=== PATIENT | female | born 1940 | race Hispanic/Latino ===

== ENCOUNTER 2024-05-16 07:50 | Outpatient (CLI) | payer MEDICARE | END 2024-05-16 07:51 | disposition home or self-care (01) | LOC: CSHMAMMO 07:50 | PROVIDERS: ATTEND Student in an Organized Health Care Education/Training Program | DX: Z78.0 Asymptomatic menopausal state (principal); M81.0 Age-related osteoporosis without current pathological fracture; M85.851 Other specified disorders of bone density and structure, right thigh; M85.852 Other specified disorders of bone density and structure, left thigh | CPT/HCPCS: 77080 ==